=== PATIENT | female | born 1945 | race African-American/Black ===

== ENCOUNTER 2017-04-01 17:27 | Emergency (ER) | payer OTHER ==
[~2017-04-01] VITALS: Ht 152.4 cm; Wt 72.6 kg
--- NOTE | ~2017-04-01 | EKG ---
[address] [address] ELECTROCARDIOGRAM REPORT Name: CLINTON STONERA Darlyn [id number] Admission: 04/01/17 Attend Phys: Discharge: 04/01/17 Date of : 47 Report #: [id number] THIS REPORT FOR: //name// [facility] ED Test Date: 2017-04-01 Test Time: 17:43:18 Pat Name: PAVEL STONE Department: Room: Gender: F [employer] Department Chair: Marcos SINCLAIR RN : 1945 Requested By: Mikey Guerrero Order Number: [id number] MD: Bong Bolden Measurements Intervals [place] Rate: 62 P: 58 TN: 176 QRS: 22 QRSD: 91 T: 64 QT: 393 QTc: 399 Interpretive Statements Sinus rhythm Compared to ECG 11/14/2015 08:34:57 Left ventricular hypertrophy no longer present T-wave abnormality no longer present Electronically Signed On 04-01-2017 21:02:10 CDT by Bong Bolden [email or web address] <ELECTRONICALLY SIGNED> By: Bong Bolden MD 04/01/172101 42 42 Bong Bolden MD /JACLYN
[~2017-04-01 17:27] MED LIST: AMBIEN 5 MG TABL5 M1 PO; ASPIR 8181 MG PO; AZOR 10-40 MG1 EACH PO; AZOR 5-20 MG T1 EACH PO; CIPROFLOXACIN500 M1 PO; CRESTOR10 MG PO; FISH OIL 1,001000 M2 PO; HCTZ; HCTZ PO; HYDROCODONE-AP1 EAC6 PO; IBUPROFEN 600600 M1 PO; LISINOPRIL; LISINOPRIL10 MG PO; MONOPRIL10 MG; MONOPRIL20 MG PO; MUCINEX TA600 MG/TA1 PO; NORVASC 5 MG TAB5 MG PO; ONDANSETRON HCL4 M2 PO; PLAVIX 300 MG300 M1 PO; SLEEP AID25 MG PO; ZETIA10 MG PO
[2017-04-01] MEDS ORDERED: LOPRESSOR25 PO (18:02)
[2017-04-01 18:09] LABS: HEMATOCRIT 44.2 % (37.0-47.0); HEMOGLOBIN 14.3 gm/dL (12.0-15.0); MCH 25.6 pg (26.0-34.0); MCHC 32.3 g/dL (28.0-37.0); MCV 79.2 fL (80.0-100.0); RBC 5.58 mil/uL (4.20-5.00); RDW 15.4 % (10.5-14.5); WBC 7.7 thou/uL (4.0-11.0)
[2017-04-01 18:20] LABS: CREATININE 0.8 mg/dL (0.6-1.0); POTASSIUM 3.9 mmol/L (3.5-5.1)
[2017-04-01 18:27] LABS: ALBUMIN 3.6 g/dL (3.4-5.0); TOTAL BILIRUBIN 0.3 mg/dL (<0.1-1.0); TOTAL PROTEIN 7.6 g/dL (6.4-8.2); TROPONIN-I 0.08 ng/mL (<0.04-0.07)
[2017-04-01] MEDS ORDERED: HYDROCHLOROTH12.5 M1 PO (19:28)
== END 2017-04-01 20:28 | disposition home or self-care (01) ==
LOC: ER 17:27
PROVIDERS: Physician Assistant
DX: I10 Essential (primary) hypertension (principal); E78.5 Hyperlipidemia, unspecified; I73.9 Peripheral vascular disease, unspecified; Z90.89 Acquired absence of other organs; Z90.710 Acquired absence of both cervix and uterus; Z88.5 Allergy status to narcotic agent; Z87.891 Personal history of nicotine dependence

== ENCOUNTER → 2017-04-07 | Outpatient (CLI) | payer OTHER ==
[~2017-04-07] MED LIST changes: +HYDROCHLOROTH12.5 M1 PO; +LOPRESSOR25 PO
== END ==
LOC: ULTRA 08:11
DX: I10 Essential (primary) hypertension (principal)

== ENCOUNTER → 2018-06-15 | Outpatient (CLI) | payer OTHER ==
--- NOTE | ~2018-06-15 | 2DMMODE ---
[facility] [place] [address] 2 D/M-MODE ECHOCARDIOGRAM Name: BERTHAPAVEL RAYNA Room #: REG CL [facility]#: [id number] Admission: 06/15/18 Attend Phys: Fahad Sanchez Discharge: Date of : 47 Date of Service: 06/15/18 1203 Report #: [id number] THIS REPORT FOR: //name// APPROVED REPORT Study performed: 06/15/2018 10:52:14 EXAM: Comprehensive 2D, Doppler, and color-flow Echocardiogram Patient Location: Out-Patient Room #: Echo lab 2 Status: routine BSA: 1.65 HR: 46 bpm BP: 164/82 mmHg Rhythm: NSR Other Information Study Quality: Adequate Indications Dyspnea Hypertension/HDD 2D Dimensions IVC: 15.00 mm Volumes Left Atrial Volume (Systole) LA ESV Index: 42.00 mL/m2 Tricuspid Valve PA Pressure: 30.00 mmHg Left Ventricle The left ventricle is normal size. There is normal LV segmental wall motion. There is normal left ventricular wall thickness. The left ventricular systolic function is normal. The left ventricular ejection fraction is within the normal range. LVEF is 60-65%. Grade II - pseudonormal filling dynamics. Right Ventricle The right ventricle is normal size. The right ventricular systolic function is normal. [facility] [place] [address] 2 D/M-MODE ECHOCARDIOGRAM Name: PAVEL STONE Room #: REG CL [facility]#: [id number] Admission: 06/15/18 Attend Phys: Fahad Sanchez Discharge: Date of : 47 Date of Service: 06/15/18 1203 Report #: [id number] Left atrium is dilated. The right atrium size is normal. Aortic Valve The aortic valve is normal in structure. No aortic regurgitation is present. There is no aortic valvular stenosis. Mitral Valve The mitral valve is normal in structure. Mild mitral regurgitation. No evidence of mitral valve stenosis. Tricuspid Valve The tricuspid valve is normal in structure. There is trace tricuspid regurgitation. Estimated PAP 30 mmHg. There is no pulmonary hypertension. Pulmonic Valve The pulmonary valve is normal in structure. There is no pulmonic valvular regurgitation. Great Vessels The aortic root is normal in size. IVC is normal in size and collapses >50% with inspiration. Pericardium There is no pericardial effusion. <Conclusion> The left ventricular systolic function is normal. There is normal LV segmental wall motion. LVEF is 60-65%. Moderate diastolic dysfunction Left atrium is dilated. The aortic valve is normal in structure. No aortic regurgitation or stenosis. The mitral valve is normal in structure. Mild mitral regurgitation. There is trace tricuspid regurgitation. Estimated pulmonary artery pressure of 30 mmHg. There is no pericardial effusion. <ELECTRONICALLY SIGNED> By: Krishna Gee MD, [facility] 06/15/183 02 02 Krishna Gee MD, [facility] /INF
== END ==
LOC: NUC 07:59
DX: I34.0 Nonrheumatic mitral (valve) insufficiency (principal); I10 Essential (primary) hypertension

== ENCOUNTER → 2020-02-22 | Outpatient (CLI) | payer OTHER ==
[~2020-02-22] MED LIST changes: +ATORVASTATIN CA40 MG PO; +BENADRYL25 MG PO; +BYSTOLIC 5 MG5 M1 PO; +EDARBYCLOR 40-1 EACH PO; +IMDUR 30 MG TAB30 M1 PO
== END ==
LOC: SJCVCIMAG 09:15
DX: I65.23 Occlusion and stenosis of bilateral carotid arteries (principal); I25.89 Other forms of chronic ischemic heart disease; I73.9 Peripheral vascular disease, unspecified; E78.00 Pure hypercholesterolemia, unspecified; Z87.891 Personal history of nicotine dependence

== ENCOUNTER → 2020-02-28 | Outpatient (CLI) | payer OTHER ==
[~2020-02-28] VITALS: Ht 152.4 cm; Wt 70.3 kg
[~2020-02-28] MED LIST changes: +NORVASC 2.5 MG2.5 M1 PO
[2020-02-28 07:49] VITALS: BP 127/69
--- NOTE | 2020-02-28 08:08 | EKG ---
[facility] [place] [place] [address] ELECTROCARDIOGRAM REPORT Name: PAVEL STONE Room #: REG [facility].#: [id number] Admission: 02/28/20 Attend Phys: Jacob Zarate MD Discharge: Date of : 47 Report #: [id number] THIS REPORT FOR: cc: Iván Rajan MD, Rene P. MD Lundgren,Krishna Herrera MD [facility] ~ THIS REPORT FOR: //name// [facility] Test Date: 2020-02-28 Test Time: 07:44:28 Pat Name: PAVEL STONE Department: Room: Gender: F [employer] Worker: NADJA : 1945 Requested By: Fahad Henry Order Number: [id number] MD: Krishna Gee Measurements Intervals [place] Rate: 47 P: 43 MO: 181 QRS: 0 QRSD: 96 T: 77 QT: 457 QTc: 404 Interpretive Statements Sinus bradycardia Nonspecific T wave abnormality Compared to ECG 07/06/2018 09:50:58 No significant change was found Electronically Signed On 02-28-2020 8:06:38 CDT by Krishna Gee [email or web address] <ELECTRONICALLY SIGNED> By: Krishna Gee MD, [facility] 02/28/2006 Krishna Gee MD, [facility] /EPI
[2020-02-28 08:15] LABS: HEMATOCRIT 40.5 % (37.0-47.0); HEMOGLOBIN 13.2 gm/dL (12.0-15.0); MCHC 32.5 g/dL (28.0-37.0); RBC 5.07 mil/uL (4.20-5.00); RDW 15.5 % (10.5-14.5); WBC 5.3 thou/uL (4.0-11.0)
[2020-02-28 08:22] LABS: CALCIUM 9.1 mg/dL (8.5-10.1); POTASSIUM 3.6 mmol/L (3.5-5.1)
--- NOTE | 2020-02-29 11:36 | CATHLAB ---
[facility] [place] [address] [place] [address] INVASIVE PROCEDURE REPORT Name: PAEVL STONE Room #: REG DURGA Quinteros.#: [id number] Admission: 02/28/20 Attend Phys: Jacob Cohen MD Discharge: Date of : 47 Report #: [id number] THIS REPORT FOR: cc: Iván Rajan MD, Rene P. MD Lammoglia, Francisco J. MD ~ APPROVED REPORT Study performed: 02/28/2020 10:17:06 Patient Details Patient Status: Out-Patient Room #: The patient is a 74 year-old female Event Personnel Kalyani Moore RTR, Hector Schulz Sherra RTR Monitor, Shiela Nieto RN RN, Fahad Henry Toll Service Observer Procedures Performed Left Heart Cath w/or w/o Coronaries [id number] [facility] Hemostasis w/ Mynx 36006 Initial Mod Sed Same Phys/QHP Gr 238009 66030 Mod Sed Same Phys/QHP 759786, supervision of conscious sedation Indication Chest pain Procedure Narrative The was infiltrated with 1% Lidocaine subcutaneous anesthesia. A 7F 11CM BRITE-TIP sheath was inserted into the RFA^. Coronary angiography was performed using coronary diagnostic catheters. The right coronary system was accessed and visualized with a JR4 catheter. The left coronary system was accessed and visualized with a JL4 catheter. The left ventricle was accessed and visualized with a PIGTAIL catheter. Closure device was deployed with a 6 Fr MYNX CONTROL 6F/7F L#[id number]. The patient tolerated the procedure well and there were no complications associated with the procedure. There was no hematoma. SEDATION, FLUORO, AND CONTRAST ARE ALL TOTALS FROM A COMBO CASE OF DR COHEN AND MICHAEL Intraoperative Conscious Sedation Sedation start time: 102 Case end Time: 1054 Fentanyl 100 mcg Versed 2 mg [facility] [place] [address] [place] [address] INVASIVE PROCEDURE REPORT Name: PAVEL STONE Room #: [facility] [id number] Admission: 02/28/20 Attend Phys: Jacob Cohen, Discharge: Date of : 47 Report #: [id number] Fluoro Time: 15.30 minutes Dose: DAP 27667.87 cGycm2 2356 mGy Contrast Type and Amount: Visipaque 163 ml Coronary Angiography The patient's coronary anatomy is right dominant. Diagnostic Cath Left Main Moderate caliber vessel of normal origin and long in length bifurcates left anterior descending left circumflex. It has luminal irregularities of less than 30% throughout its course. LAD Moderate caliber type II vessel which has a 30-40% proximal irregularities which is eccentric. It is not flow-limiting. The vessel continues in the anterior interventricular sulcus in a very tortuous course. There is irregularities noted throughout the proximal mid and distal portions of the LAD of which are less than 30%. Diagonal 1 Small-caliber vessel with proximal eccentric lesion of less than 50%. Is not flow-limiting Circumflex Moderate caliber vessel with irregularities proximally of less than 30%. In his end of its proximal third there is a T bifurcation involving the distal circumflex and a moderate caliber first marginal branch. There are numerous regions of eccentric mild plaquing of 30% or less in both the distal circulation which is a small vessel terminating posterior aspect of the left ventricle and the first marginal branch OM1 Small-caliber vessel which is tortuous and his course with mild to moderate luminal irregularities of less than 50% which are nonflow limiting Right Coronary Small to moderate caliber vessel with an inferior takeoff and a frias's current deformity is completely occluded proximally. Posterior descending artery and posterior lateral branch filled via [id number] collaterals which are noted. The PDA is a small caliber vessel with diffuse irregularities R PDA Small-caliber vessel long length with diffuse irregularities noted filling via left to right Left Ventriculography Left Ventriculography was not performed. Hemodynamics The aortic pressure is 131/38 mmHg with a mean of 71 mmHg. The left ventricular pressure is 158/14 mmHg with a mean of mmHg. The left ventricular end diastolic pressure is 22 mmHg. [facility] [address] [place] [address] INVASIVE PROCEDURE REPORT Name: PAVEL STONE Room #: REG SAUL Li#: [id number] Admission: 02/28/20 Attend Phys: Jacob Cohen, Discharge: Date of : 47 Report #: [id number] PCI Technique Lesion Percutaneous coronary intervention was performed on the Unspecified. Conclusion 1. Coronary artery disease, single-vessel severe consisting of a totally occluded proximal RCA and mild to moderate coronary disease of the left coronary system which is [id number] 2. Abnormal hemodynamics with elevated left ventricular end-diastolic pressures Recommendations Cardiac Risk Reduction Program Agg[facility] Therapy <ELECTRONICALLY SIGNED> By: Fahad Henry MD 02/29/20 1134 1134 1134 Fahad Henry MD /INF
== END | disposition home or self-care (01) ==
LOC: CATH 07:03
PROVIDERS: Internal Medicine
DX: R07.9 Chest pain, unspecified (principal); I25.10 Atherosclerotic heart disease of native coronary artery without angina pectoris; I25.82 Chronic total occlusion of coronary artery; I70.211 Atherosclerosis of native arteries of extremities with intermittent claudication, right leg; I70.1 Atherosclerosis of renal artery; I10 Essential (primary) hypertension; E78.5 Hyperlipidemia, unspecified; E11.9 Type 2 diabetes mellitus without complications; Z98.890 Other specified postprocedural states; Z79.899 Other long term (current) drug therapy; Z90.710 Acquired absence of both cervix and uterus; Z88.8 Allergy status to other drugs, medicaments and biological substances

== ENCOUNTER → 2020-04-01 | Outpatient (CLI) | payer OTHER | LOC: SJCVCIMAG 08:17 | DX: I73.9 Peripheral vascular disease, unspecified (principal); I25.10 Atherosclerotic heart disease of native coronary artery without angina pectoris; I10 Essential (primary) hypertension; E11.00 Type 2 diabetes mellitus with hyperosmolarity without nonketotic hyperglycemic-hyperosmolar coma (NKHHC); E78.00 Pure hypercholesterolemia, unspecified ==

== ENCOUNTER → 2020-08-08 | Outpatient (CLI) | payer OTHER ==
[2020-08-08 10:28] LABS: ABSOLUTE NEUTROPHILS 2.9 thou/uL (1.4-8.2); BASOPHILS 0.7 % (0.0-2.0); EOSINOPHILS 10.6 % (0.0-3.0); HEMATOCRIT 40.7 % (37.0-47.0); HEMOGLOBIN 13.2 gm/dL (12.0-15.0); LYMPHOCYTES 23.2 % (24.0-44.0); MCH 25.9 pg (26.0-34.0); MCHC 32.3 g/dL (28.0-37.0); MONOCYTES 10.1 % (1.0-8.0); PLATELET COUNT 123 thou/uL (150-400); POLYS 55.4 % (36.0-66.0); RBC 5.09 mil/uL (4.20-5.00); RDW 15.5 % (10.5-14.5); WBC 5.2 thou/uL (4.0-11.0)
[2020-08-08 10:45] LABS: ALBUMIN 4.1 g/dL (3.4-5.0); CALCIUM 9.2 mg/dL (8.5-10.1); POTASSIUM 4.2 mmol/L (3.5-5.1); TOTAL BILIRUBIN 0.6 mg/dL (0.2-1.0); TOTAL PROTEIN 7.5 g/dL (6.4-8.2); URIC ACID* 7.4 mg/dL (2.6-6.0)
[2020-08-08 23:06] LABS: GLYCOHEMOGLOBIN (HGB A1C) 6.1 % (4.8-5.6)
== END ==
LOC: LAB 09:57
PROVIDERS: ATTEND Nurse Practitioner
DX: M10.9 Gout, unspecified (principal); E11.9 Type 2 diabetes mellitus without complications; I10 Essential (primary) hypertension

== ENCOUNTER → 2020-10-22 | Outpatient (CLI) | payer OTHER | LOC: SJCVCIMAG 09:21 | PROVIDERS: ATTEND Nuclear Medicine Nuclear Cardiology | DX: I73.9 Peripheral vascular disease, unspecified (principal); M79.604 Pain in right leg; Z95.828 Presence of other vascular implants and grafts; Z87.891 Personal history of nicotine dependence ==

== ENCOUNTER → 2021-05-27 | Outpatient (CLI) | payer OTHER | LOC: SJCVCIMAG 08:31 | PROVIDERS: ATTEND Nuclear Medicine Nuclear Cardiology | DX: I70.201 Unspecified atherosclerosis of native arteries of extremities, right leg (principal); I70.8 Atherosclerosis of other arteries; I77.9 Disorder of arteries and arterioles, unspecified; I25.10 Atherosclerotic heart disease of native coronary artery without angina pectoris; I10 Essential (primary) hypertension; E78.00 Pure hypercholesterolemia, unspecified; E11.00 Type 2 diabetes mellitus with hyperosmolarity without nonketotic hyperglycemic-hyperosmolar coma (NKHHC); Z87.891 Personal history of nicotine dependence; Z88.5 Allergy status to narcotic agent; Z79.899 Other long term (current) drug therapy; Z95.818 Presence of other cardiac implants and grafts; Z95.828 Presence of other vascular implants and grafts ==

== ENCOUNTER → 2021-05-28 | Outpatient (CLI) | payer OTHER ==
[2021-05-28 12:17] LABS: ABSOLUTE NEUTROPHILS 4.9 thou/uL (1.4-8.2); BASOPHILS 0.6 % (0.0-2.0); EOSINOPHILS 5.5 % (0.0-3.0); HEMATOCRIT 38.5 % (37.0-47.0); HEMOGLOBIN 12.6 gm/dL (12.0-15.0); LYMPHOCYTES 18.3 % (24.0-44.0); MCH 26.1 pg (26.0-34.0); MCHC 32.8 g/dL (28.0-37.0); MCV 79.5 fL (80.0-100.0); MONOCYTES 7.1 % (1.0-8.0); PLATELET COUNT 202 thou/uL (150-400); POLYS 68.5 % (36.0-66.0); RBC 4.84 mil/uL (4.20-5.00); RDW 15.3 % (10.5-14.5); WBC 7.2 thou/uL (4.0-11.0)
[2021-05-28 12:38] LABS: ALBUMIN 3.3 g/dL (3.4-5.0); CALCIUM 8.9 mg/dL (8.5-10.1); TOTAL BILIRUBIN 0.4 mg/dL (0.2-1.0); TOTAL PROTEIN 7.4 g/dL (6.4-8.2)
[2021-05-28 23:06] LABS: GLYCOHEMOGLOBIN (HGB A1C) 6.3 % (4.8-5.6)
== END ==
LOC: LAB 10:12
PROVIDERS: ATTEND Family Medicine
DX: I10 Essential (primary) hypertension (principal)

== ENCOUNTER → 2021-12-17 | Outpatient (CLI) | payer BC | LOC: SJCVCIMAG 08:28 → SJCVC 08:57 | PROVIDERS: ATTEND Nuclear Medicine Nuclear Cardiology | DX: T82.856A Stenosis of peripheral vascular stent, initial encounter (principal); I70.203 Unspecified atherosclerosis of native arteries of extremities, bilateral legs; I65.23 Occlusion and stenosis of bilateral carotid arteries; M79.606 Pain in leg, unspecified ==